=== PATIENT | female | born 1955 | race Caucasian/White ===

== ENCOUNTER → 2016-04-18 | Outpatient (CLI) | payer OTHER ==
--- NOTE | 2016-04-18 15:03 | KCIC ---
PROCEDURE Bone mineral density exam HISTORY Postmenopausal, osteoporosis COMPARISON None FINDINGS Bone mineral density examination utilizing DEXA was performed. Left hip bone mineral density was 0.774 grams/centimeter squared which corresponds with a T-score-1.4 and a Z-score of-0.5. Lumbar spine bone mineral density was 0.0804 grams/centimeters squared which corresponds with T-score-2.2 and a Z-score-0.9. World Health Organization criteria for bone mineral density interpretation: Normal T-score greater than or equal to-1.0, Osteopenia T score between-1.0 and-2.5, Osteoporosis T-score less than or equal to-2.5. IMPRESSION There is osteopenia of the lumbar spine and the left hip. Electronically signed by: Joshua Sofia MD (Apr 18, 2016 15:02:06)
--- NOTE | 2016-04-21 13:36 | KCIC ---
Bilateral digital screening mammograms with CAD: HISTORY Routine screening. COMPARISON Comparison is made to previous study dated 03/25/2012. FINDINGS Breast density category B. The skin and nipples show no abnormalities. No abnormal lymph nodes are seen in the axilla. The breast parenchyma shows scattered fibroglandular density. There is a small nodular density seen in the 1 o'clock B position of the left breast measuring approximately 1.1 centimeters in greatest dimension. This may represent a small fibroadenoma but recommend further evaluation with ultrasound. There are no other dominant masses, suspicious calcifications or architectural distortions. IMPRESSION 1.1 centimeter nodule located at approximately the 1 o'clock B position of the left breast. Recommend further evaluation with ultrasound. This study was interpreted with the benefit of Computerized Aided Detection (CAD). Mammography is not 100% sensitive in detecting breast cancer. Therefore, a self breast exam and a clinical breast exam are very important. A negative mammogram does not negate a clinically suspicious finding and should not result in a delay in biopsying a clinically suspicious abnormality. BI-RADS category 0: Incomplete. Ultrasound followup is recommended. This patient's information has been entered into a reminder system for the patient to be notified with the results of this examination and a target date for her next mammograms. Electronically signed by: Elyssa Sy MD (Apr 21, 2016 13:35:17)
== END | disposition home or self-care (01) ==
LOC: KCIC MAMMO 12:52
PROVIDERS: ATTEND Nurse Practitioner Family
DX: Z12.31 Encounter for screening mammogram for malignant neoplasm of breast (principal); M81.0 Age-related osteoporosis without current pathological fracture; M85.88 Other specified disorders of bone density and structure, other site; Z78.0 Asymptomatic menopausal state
CPT/HCPCS: 77080; G0202; 77052; 77067

== ENCOUNTER → 2016-05-02 | Outpatient (CLI) | payer OTHER ==
--- NOTE | 2016-05-02 11:26 | KCIC ---
PROCEDURE Left breast sonogram. HISTORY 60-year-old female presents for evaluation of a nodular density within the left breast demonstrated on a mammogram dated 04/18/2016. TECHNIQUE Sonographic imaging of the left breast targeted to the 12 o'clock position was performed. COMPARISON 04/18/2016 FINDINGS There is an oval hypoechoic lesion at the 12 o'clock position 6 cm from the nipple measuring 6 mm, consistent with the mammographic nodule of concern. There is surrounding dense breast parenchyma. This demonstrates no suspicious posterior shadowing, architectural distortion or internal blood flow. No additional lesion is seen. There are benign-appearing axillary lymph nodes. IMPRESSION 1. 6 mm oval hypoechoic lesion at the 12 o'clock position of the left breast, consistent with the mammographic finding of concern. The sonographic appearance and absence of internal blood flow favor a complex cyst with surrounding dense breast parenchyma. 2. BI-RADS Category 3: Probably benign finding. Short-term followup with a left breast sonogram in 6 months is recommended to confirm stability. Electronically signed by: Yi Marcum (May 02, 2016 11:24:41)
== END | disposition home or self-care (01) ==
LOC: KCIC MAMMO 10:23
PROVIDERS: ATTEND Nurse Practitioner Family
DX: R92.8 Other abnormal and inconclusive findings on diagnostic imaging of breast (principal); N63 Unspecified lump in breast
CPT/HCPCS: 76641